=== PATIENT | female | born 1955 | race Caucasian/White ===

== ENCOUNTER → 2017-03-21 | Outpatient (CLI) | payer BC ==
--- NOTE | 2017-03-21 08:42 | DIAGNOSTIC IMAGING REPORT ---
THYROID ULTRASOUND HISTORY: Follow-up thyroid nodules. COMPARISON: Neck CT 03/15/2017. FINDINGS: Right lobe: Surgically absent. Left lobe: 4.9 x 1.5 x 2.0 cm. There are few nodules present. Dominant heterogeneous predominantly solid nodule within the lower pole measures 1.3 x 1.1 x 0.9 cm. IMPRESSION: 1. The right thyroid lobe is surgically absent. 2. A few left thyroid nodules with the dominant nodule in lower pole measuring 1.3 cm. This does not meet sonographic criteria for biopsy at this time. Continued follow-up is recommended. Electronically signed by: Alli Perez M.D. 03/21/2017 8:40 AM Dictated Date/Time: 03/21/2017 8:38 AM
== END | disposition home or self-care (01) ==
LOC: C.ULTRBC 08:07
PROVIDERS: ATTEND Family Medicine
DX: E04.2 Nontoxic multinodular goiter (principal)

== ENCOUNTER → 2017-10-03 | Outpatient (CLI) | payer BC ==
--- NOTE | 2017-10-03 09:29 | DIAGNOSTIC IMAGING REPORT ---
L FOOT MIN 3 VIEWS ROUTINE CLINICAL HISTORY: Left foot pain status post trauma COMPARISON: 05/03/2015 DISCUSSION: Postsurgical changes involve the first metatarsal. There is no evidence of hardware fracture. No acute fractures or dislocations are visualized. There are mild degenerative changes the level of the fourth tarsal metatarsal joint. There are mild degenerative changes the level the first metatarsal phalangeal joint. IMPRESSION: Postsurgical and degenerative change. No acute fractures. Electronically signed by: Fausto Blount M.D. 10/03/2017 9:28 AM Dictated Date/Time: 10/03/2017 9:26 AM
== END | disposition home or self-care (01) ==
LOC: C.RAD1850 09:10
PROVIDERS: ATTEND Emergency Medicine
DX: M19.072 Primary osteoarthritis, left ankle and foot (principal)

== ENCOUNTER → 2017-10-08 | Outpatient (CLI) | payer BC ==
--- NOTE | 2017-10-08 15:12 | MAMMOGRAPHY REPORT ---
BILATERAL DIGITAL SCREENING MAMMOGRAM TOMOSYNTHESIS WITH CAD: 10/08/2017 CLINICAL HISTORY: Routine screening. Patient has no complaints. TECHNIQUE: Breast tomosynthesis in addition to standard 2D mammography was performed. Current study was also evaluated with a Computer Aided Detection (CAD) system. COMPARISON: Comparison is made to exams dated: 10/30/2016 mammogram, 10/14/2015 mammogram, 10/07/2014 mammogram, 10/06/2013 mammogram, 09/24/2012 mammogram, and 09/14/2011 mammogram - [facility]. BREAST COMPOSITION: There are scattered areas of fibroglandular density in both breasts. FINDINGS: There is evidence of prior surgery in the inferior right breast and right axilla, with makayla gical clips remaining in place. There is increasing focal asymmetry in the 6:00 far posterior right breast near the area of prior surgery, that could represent normal overlapping tissue. However, page tional spot compression tomosynthesis views with possible ultrasound are recommended. No other suspicious mass, architectural distortion or cluster of microcalcifications is seen bilsara funes. IMPRESSION: ACR BI-RADS CATEGORY 0: INCOMPLETE EVALUATION: NEED ADDITIONAL IMAGING EVALUATION The increasing focal asymmetry in the 6:00 posterior right breast needs additional evaluation. The patient will be called to schedule an appointment. Approximately 10% of breast cancers are not detected with mammography. A negative mammographic report should not delay biopsy if a clinically suggestive mass is present. Sabrina Atkins M.D. ay/:10/08/2017 08:26:34 Customer Service Representative Teller: Melissa STARKEY(Ángela)(Shawn)(BD), [facility] letter sent: Addl Imaging 0 BI-RADS Code: ACR BI-RADS Category 0: Incomplete Evaluation: Need Additional Imaging Evaluation
== END | disposition home or self-care (01) ==
LOC: C.MAMM 07:34
PROVIDERS: ATTEND Internal Medicine
DX: Z12.31 Encounter for screening mammogram for malignant neoplasm of breast (principal); N64.89 Other specified disorders of breast

== ENCOUNTER → 2017-10-10 | Outpatient (CLI) | payer BC ==
--- NOTE | 2017-10-10 13:43 | MAMMOGRAPHY REPORT ---
UNILATERAL RIGHT DIGITAL DIAGNOSTIC MAMMOGRAM TOMOSYNTHESIS AND TARGETED RIGHT ULTRASOUND: 10/10/2017 CLINICAL HISTORY: 62-year-old woman with a personal history of right breast cancer diagnosed approxim ately 20 years ago, status post breast conservation treatment, called back from recent screening mamm ogram for a focal asymmetry posterior to the surgical site in the 6:00 right breast. TECHNIQUE: Spot compression right CC and MLO tomosynthesis images were obtained. COMPARISON: Comparison is made to exams dated: 10/08/2017 mammogram, 10/30/2016 mammogram, 10/14/2015 mammogram, 10/07/2014 mammogram, 10/06/2013 mammogram, and 09/24/2012 mammogram - [facility]. BREAST COMPOSITION: There are scattered areas of fibroglandular density in the right breast. FINDINGS: The additional spot compression tomosynthesis MLO views of the right breast demonstrate par tial effacement of the dense asymmetry in the inferior posterior breast. The appearance of the spot compression MLO view appears very similar to prior mammograms. There is persistent asymmetry in the far posterior right breast along the posterior nipple line on the spot compression CC views. It is u nclear if this represents scar tissue or could represent a developing asymmetry in further evaluation with ultrasound was performed. Targeted ultrasound was performed in the inferior right breast 5:00, 6:00 and 7:00 axes. Expected ar chitectural distortion and a shadowing coarse calcification is identified in the area of prior surger y in the 6:00 axis, 2 cm from the nipple. However, no hypoechoic solid mass or suspicious abnormalit y is identified on ultrasound. IMPRESSION: ACR BI-RADS CATEGORY 0: INCOMPLETE EVALUATION: NEED ADDITIONAL IMAGING EVALUATION, TARG ETED ULTRASOUND ACR BI-RADS CATEGORY 0: INCOMPLETE EVALUATION: NEED ADDITIONAL IMAGING EVALUATION Additional tomosynthesis images demonstrate partial effacement of the focal asymmetry in the 6:00 pos terior right breast, along the posterior aspect of the lumpectomy bed, and no definite suspicious son ographic correlate identified. However, given that this area appears slightly increased in density c omparing to prior mammograms and the personal history of breast cancer, recommend further evaluation with a breast MRI to exclude the possibility of a subtle enhancing mass near the surgical site. These results and recommendations were discussed with the patient at the time of the exam. Approximately 10% of breast cancers are not detected with mammography. A negative mammographic report should not delay biopsy if a clinically suggestive mass is present. Sabrina Atkins M.D. ay/:10/10/2017 09:21:24 Progress Clerk: Mora Alexander, [facility] letter sent: Addl Imaging 0 BI-RADS Code: ACR BI-RADS Category 0: Incomplete Evaluation: Need Additional Imaging Evaluation Ult rasound BI-RADS: ACR BI-RADS Category 0: Incomplete Evaluation: Need Additional Imaging Evaluation
== END | disposition home or self-care (01) ==
LOC: C.MAMM 07:50
PROVIDERS: ATTEND Internal Medicine
DX: N64.9 Disorder of breast, unspecified (principal); Z85.3 Personal history of malignant neoplasm of breast

== ENCOUNTER → 2017-10-23 | Outpatient (CLI) | payer BC ==
[~2017-10-23] MED LIST: GADAVIST IV PRN
--- NOTE | 2017-10-24 16:02 | MAMMOGRAPHY REPORT ---
BREAST MRI OF BOTH BREASTS : 10/23/2017 CLINICAL HISTORY: 62-year-old woman with a personal history of right breast cancer status post breast conserving treatment in 1996. She was recently called back from screening mammography for an asymme try posterior to the surgical site in the inferior posterior right breast, for which no definite susp icious sonographic correlate was identified. She presents for breast MRI to assess for any abnormal enhancement at the site of prior surgery or elsewhere in the breasts. COMPARISON: Comparison is made to exams dated: 10/10/2017 ultrasound, 10/08/2017 mammogram, 10/30/20 16 mammogram, 10/14/2015 mammogram, 10/07/2014 mammogram, and 10/06/2013 mammogram - [facility]. TECHNIQUE: Using a 1.5 Juila magnet and dedicated breast coil, multisequence axial images were obtain ed through the breasts. After uneventful IV administration of 6.2 mL of Gadavist, dynamic multiphase contrast-enhanced axial images, and sagittal postcontrast were obtained. Temporal subtraction axial images and 3-D MIP images are provided. Everything was then reviewed on a 3-D workstation, [employer]. FINDINGS: Right breast: There is no significant background parenchymal enhancement of the right breast. There is expected architectural distortion with small foci of susceptibility artifact at the lumpectomy bed in the 6:00 to 7:00 middle to posterior right breast. There is subtle non-mass enhancement with ass ociated persistent kinetics along the most inferior and posterior aspect of the surgical scar, measur ing approximately 2.2 cm in craniocaudal by 1.8 cm in AP by 0.6 cm in transverse dimension, best appr eciated on sagittal page 96/120 and axial page 98/130. Given the asymmetry of enhancement only along one portion of the scar this remains suspicious for an infiltrative process and further characteriza tion with an MRI guided biopsy is recommended. It is doubtful second look ultrasound would be useful given the non-mass nature of this enhancement and also initial targeted ultrasound was negative. No other suspicious enhancing mass, non-mass enhancement or suspicious kinetics is seen in the right br east. The retromammary fat remains intact. No suspicious right axillary, subpectoral or internal ma mmary lymphadenopathy. Left breast: There is mild background parenchymal enhancement of the left breast. The most conspicuo us focus of enhancement is identified in the 12:00 middle one third of the left breast (axial page 63 /130, sagittal page 26/120) measuring 5 x 3 mm with mixed persistent and plateau kinetics. Although this may be within the range of normal background enhancement, pending benign pathology results from the right breast biopsy, would recommend a follow-up breast MRI in 6 months to ensure stability in th e left breast. No other dominant suspicious enhancing mass, non-mass enhancement or suspicious kinet ics are seen in the left breast. No focal skin thickening or nipple retraction. The retromammary fa t is intact. No suspicious left axillary, subpectoral or internal mammary lymphadenopathy. Other: At least two T2 hyperintense nonenhancing lesions are identified in the left hepatic lobe, the largest measuring 2 cm (axial page 49/65 T2-weighted sequence), most compatible with cysts. A prior abdominal ultrasound from 2009 only demonstrated a few subcentimeter cysts in the liver and therefor e consider repeat evaluation with a hepatic ultrasound. There is minimal dependent atelectasis in th e visualized lungs. IMPRESSION: ACR BI-RADS CATEGORY 4: SUSPICIOUS 1. Subtle asymmetric non-mass enhancement along the inferior and posterior aspect of the lumpectomy scar in the right 6:00 posterior breast that remains suspicious. Further characterization with an MR I guided biopsy is recommended. 2. Mild background parenchymal enhancement of the left breast with a conspicuous 5 x 3 mm enhancing focus in the 12:00 breast that may be within the range of normal background enhancement. However, pe nding benign pathology results in the right breast, a short interval follow-up breast MRI is recommen ded to ensure stability in 6 months. 3. Incidental liver cysts, the largest measuring approximately 2 cm, located in the left hepatic lob e. A prior abdominal ultrasound from 2009 only demonstrated a few subcentimeter liver cysts and ther efore consider repeat evaluation with a hepatic ultrasound given the possible interval change. The patient will be called to schedule an appointment. Sabrina Atkins M.D. ay/:10/23/2017 22:07:47 Immunology Teacher: nurse general duty, [facility] letter sent: Abnormal 4/5 BI-RADS Code: ACR BI-RADS Category 4: Suspicious
== END | disposition home or self-care (01) ==
LOC: C.MRI 10:00
PROVIDERS: ATTEND Internal Medicine
DX: R92.8 Other abnormal and inconclusive findings on diagnostic imaging of breast (principal)

== ENCOUNTER → 2017-11-15 | Outpatient (CLI) | payer BC, OTHER ==
[~2017-11-15] MED LIST changes: +LIDO/EPINEPHRINE/SOD BICARB 20 ML VIAL INFIL ONE; +XYLOCAINE 1%/SOD BICARB 20 ML VIAL INFIL ONE
--- NOTE | 2017-11-15 12:07 | Discharge Instructions ---
Discharge Instructions Procedure Procedure Date: Nov 15, 2017. Reason for visit: Right Non-Mass Enhancement. Discharge Discharge Date: Nov 15, 2017. Discharge Diagnosis: post right breast MRI guided biopsy Instructions Activity Recommendations: Additional Limitations (see below) Return to School/Work: no limitations Recommended Home Diet: No Limitations Provider Instructions: ACTIVITY RECOMMENDATIONS: * No lifting, pushing, pulling or exercising the affected side for three days. RETURN TO SCHOOL/WORK: * You may return to work/school after the procedure, but do not perform any strenuous activities for 24 to 48 hours. MEDICATIONS: * Tylenol (two 325 mg) every four to six hours if needed for mild pain (if not allergic to Tylenol). DIET: * Resume previous diet. SPECIAL CARE INSTRUCTIONS: * Keep biopsy site dry for 24 hours. May shower after 24 hours, but do not soak (bathe) incision. * May remove Tegaderm (plastic patch) tomorrow AFTER showering. * Leave the steri-strips on for one week. Allow the steri-strips to fall off by themselves. If not off after one week, you may remove them. You may place a Bandaid crosswise over the strips, if desired. * Apply ice 10 minutes on and 10 minutes off as needed. * Wear a bra at bedtime to sleep more comfortably for 2-3 days. * Your referring physician should have the results after approximately 5 to 7 business days. * Call for unusual bleeding, fever, drainage, etc or if you have any questions call [phone] during normal business hours or after hours call Dr Atkins, . FOLLOW UP VISIT: Follow-up with Referring Physician as scheduled. [facility] Recommendations: Call your doctor if: * Temperature above 101 degrees * Pain not relieved by pain medicine ordered * There is increased drainage or redness from any incision * You have any unanswered questions or concerns. Your Doctors Instructions noted above were prepared by provider Sabrina Atkins. Patient Signature Section: Patient Instructions Signature Page Evy Cunningham Patient (or Guardian) Signature/Date: I have read and understand the instructions given to me by my caregivers. Caregiver/RN/Doctor Signature/Date: The above-named patient and/or guardian has received patient instructions on this date. + Original Patient Signature Page (only) stays with chart. Please make copy for patient.
--- NOTE | 2017-11-16 14:34 | MAMMOGRAPHY REPORT ---
THIS REPORT HAS BEEN AMENDED. MRI BIOPSY RIGHT BREAST: 11/15/2017 CLINICAL HISTORY: Patient presents for MRI guided biopsy of linear non-mass enhancement near the post erior inferior aspect of the surgical site in the 6:00 posterior right breast. COMPARISON: Comparison is made to exams dated: 10/23/2017 breast MRI, 10/10/2017 ultrasound, 017 mammogram, 10/30/2016 mammogram, 10/14/2015 mammogram, and 10/07/2014 mammogram - [facility]. PATIENT CONSENT: After explaining the risks, benefits and alternatives of the procedure to the patien t, informed consent was obtained both verbally and in writing. Specific risks include: Bleeding, inf ection, puncture of adjacent structure, medication reaction, breast or lung injury, sampling error. PROCEDURE DESCRIPTION: A timeout was performed prior to starting the procedure, and the right breast was agreed as the site for biopsy. The patient was placed prone on a 1.5 Julia MRI scanner. The lateral aspect of the right breast was cleansed with ChloraPrep. The right breast was positioned in a dedicated breast coil and MRI guidanc e grid device. After localizing sequences were obtained, pre-and postcontrast axial sequences were obtained, using 6 .5 mL of gadolinium breast without immediate reaction. The postcontrast images confirm the persisten ce of linear non-mass enhancement along the posterior aspect of the surgical scar in the 6:00 to 7:00 far posterior right breast. Using these images, targeting was performed using [employer] software. The skin was re-prepped with Betadine through the grid, and after local anesthesia was achieved, an i ntroducer sheath and localizing back roll lathe operator were placed into the right breast via a lateral approach. T he location of the back roll lathe operator sheath was confirmed with additional axial images. It was felt to be in adequate position and then 10 core biopsy samples were obtained with a BackOpsIVA 9-gauge vacuum-as sisted biopsy device. Post biopsy images demonstrate partial sampling of the linear non-mass enhancement therefore 4 additi onal core biopsy samples were obtained. The final postprocedure MRI images demonstrate adequate samp ling of the non-mass linear enhancement and therefore a metallic biopsy marker clip was placed at the site. The patient tolerated the procedure well and there was no immediate complication. Hemostasis was ach ieved after several minutes of manual compression. The samples were sent to pathology in an appropri ately labeled container. Postprocedure mammography demonstrates a new dumbbell-shaped biopsy marker clip and no significant he matoma in the 6:00 far posterior right breast, at the site of the biopsy linear non-mass enhancement seen on MRI. IMPRESSION: MRI BIOPSY Status post MRI guided biopsy of linear non-mass enhancement near the posterior aspect of the surgica l scar in the 6:00 to 7:00 posterior right breast, with biopsy marker clip placed at the site. Pending benign pathology results, a follow-up breast MRI is recommended in 6 months to ensure stabili ty. The patient will receive notification of the biopsy results from her referring physician. Sabrina Atkins M.D. ay/:11/15/2017 14:49:41 Promotion Writer: board mixer tender, [facility] AMENDMENT: 11/19/2017 Sabrina Atkins M.D. Pathology results from the MRI guided biopsy of linear non-mass enhancement in the posterior right br east near the surgical scar yielded benign breast tissue. Negative for in situ and invasive carcinom a. The pathology results are concordant with the imaging appearance. A bilateral breast MRI is recommended in 6 months to ensure stability and adequate sampling after the biopsy. The pathology results and recommendations were discussed with the patient at 4:20 PM on 06/2018. She tentatively scheduled her follow-up breast MRI via telephone.
--- NOTE | 2017-11-16 14:38 | MAMMOGRAPHY REPORT ---
UNILATERAL RIGHT DIGITAL DIAGNOSTIC MAMMOGRAM TOMOSYNTHESIS: 11/15/2017 CLINICAL HISTORY: Status post MRI guided biopsy of non-mass enhancement near the surgical site in the 6:00 posterior right breast. Please refer to the report from MRI guided biopsy of the right breast performed at the same time for full detail. IMPRESSION: POST PROCEDURE IMAGING FOR MARKER PLACEMENT Please refer to the report from MRI guided biopsy of the right breast performed at the same time for full detail. Approximately 10% of breast cancers are not detected with mammography. A negative mammographic report should not delay biopsy if a clinically suggestive mass is present. Sabrina Atkins M.D. ay/:11/15/2017 13:35:42 Clutch Specialist: Cass AGUILA)(M), [facility] BI-RADS Code: Post Procedure Imaging For Marker Placement
== END | disposition home or self-care (01) ==
LOC: C.MRI 10:12
PROVIDERS: ATTEND Internal Medicine
DX: R92.8 Other abnormal and inconclusive findings on diagnostic imaging of breast (principal)

== ENCOUNTER → 2018-01-22 | Outpatient (CLI) | payer OTHER ==
--- NOTE | 2018-01-22 10:15 | DIAGNOSTIC IMAGING REPORT ---
(LIVER) ABDOMEN LIMITED HISTORY: 62 years-old Female K76.89 Hepatic [id number] follow-up study in a patient with hepatic cysts COMPARISON: Ultrasound of the abdomen 09/30/2010 TECHNIQUE: Multiple real-time sonographic images of the abdominal right upper quadrant were obtained assessing grayscale appearance and color flow FINDINGS: The imaged pancreas appears unremarkable. Distal pancreas body and tail are obscured by bowel gas. There are multiple cysts again noted throughout the liver, largest of which measures up to 1.5 cm within the left hepatic lobe. These cysts may have slightly increased in size without suspicious hepatic mass lesions identified. No intrahepatic biliary ductal dilation identified. Liver measures up to 15.2 cm in length. 2 mm nonshadowing echogenic focus along the dependent gallbladder lumen is noted. No shadowing cholelithiasis, gallbladder wall thickening or pericholecystic fluid collections. Common bile duct is normal, 5 mm. The right kidney measures up to 9.8 cm in length. 5 mm area of increased echogenicity of the superior pole right kidney is noted without definite posterior acoustic shadowing. No roya hydronephrosis. IMPRESSION: 1. Several hepatic cysts are redemonstrated. No suspicious hepatic mass lesions or intrahepatic biliary ductal dilation identified. 2. No cholelithiasis or sonographic evidence of acute cholecystitis. 2 mm echogenic focus along the dependent gallbladder lumen may reflect focal sludge or small polyp. 3. 5 mm echogenicity of the superior pole right kidney is suspicious for a small nonobstructing calculus. The above report was generated using voice recognition software. It may contain grammatical, syntax or spelling errors. Electronically signed by: Pablito Watts M.D. 01/22/2018 10:14 AM Dictated Date/Time: 01/22/2018 10:09 AM
== END | disposition home or self-care (01) ==
LOC: C.ULTR 09:02
PROVIDERS: ATTEND Internal Medicine
DX: K76.89 Other specified diseases of liver (principal); K82.9 Disease of gallbladder, unspecified; N28.9 Disorder of kidney and ureter, unspecified